=== PATIENT | male | born 1995 | race Caucasian/White ===

== ENCOUNTER → 2016-12-21 | Day surgery (SDC) | payer OTHER ==
[~2016-12-21] VITALS: Ht 177.8 cm; Wt 90.7 kg
[~2016-12-21] MED LIST: BUPIVACAINE HCL 0.5% 30 ML VIAL As Ordered ONE; HYCE0.1S PO; HYDROmorphone HCL 1 MG/ML SYRINGE (J1170) IV PRN; IBUP800T23 PO; IBUPROFEN 800 MG TAB PO PRN; KEFL500C7 PO; LIDOCAINE 2% INJ 100 MG/5 ML SDV (FOR ANES.) As Ordered ONE; LR 1,000 ML IV SCH; MIDAZOLAM INJ 2 MG/2 ML VIAL (J2250) As Ordered ONE; ONDANSETRON 4MG/2ML VIAL (J2405) As Ordered ONE; ONDANSETRON 4MG/2ML VIAL (J2405) IV PRN; OXYC1TAB23 PO; PERCOCET 5MG/325MG TAB PO PRN; PROPOFOL 200 MG/20 ML VIAL As Ordered ONE; SUCCINYLCHOLINE 100 MG/5 ML SYRINGE (J0330) As Ordered ONE; dexameTHASONE 4 MG/ML 1ML VIAL (J1100) As Ordered ONE; fentaNYL 100 MCG/2 ML INJECTION (J3010) As Ordered ONE; fentaNYL 100 MCG/2 ML INJECTION (J3010) IV PRN; no medications
[2016-12-21 13:05] VITALS: BP 176/105
--- NOTE | 2016-12-22 08:51 | RO ---
DATE OF PROCEDURE: 12/21/2016 PREOPERATIVE DIAGNOSIS: Chronic tonsillitis. POSTOPERATIVE DIAGNOSIS: Chronic tonsillitis. PROCEDURE: Tonsillectomy. SURGEON: Dr. Roger Jay COMPLETION SUPERVISOR: ANESTHESIA: INDICATION: 21-year-old with a history of chronic tonsil inflammation and tonsil stone production. PROCEDURE: Satisfactory general endotracheal anesthesia was administered. The patient placed in Trendelenburg position. A Miranda-Macho gag inserted. First, the right tonsil was grasped with an Allis clamp and retracted out of its muscular fossa. Using a cutting cautery, incision was made on the anterior pillar 3 mm from its edge and the capsule of the tonsil was then identified. Using a combination of cautery and blunt dissection, the tonsil was dissected medially out of its muscular fossa working superiorly down into the space between the constrictor muscle and the tonsil capsule. The tonsil was rolled medially out of its fossa working inferiorly and preserving the posterior pillar in its entirety. Once the tonsil was suspended only at the inferior pole, coagulation current was used to amputate tissue. No significant bleeding was encountered in this dissection. The left tonsil was removed in a similar fashion. After completing surgery, 0.50% Marcaine was injected into the surgical site. The gag was released at 3 minutes. Reinspection showed no active bleeding. The pharynx was irrigated with saline solution. The patient was then awakened, extubated and sent to recovery in satisfactory condition. He will be discharged home on a selection of pain medicine including Percocet, Motrin 800 mg and adult Tylenol. He will be seen back in the office in 1 week.
== END | disposition home or self-care (01) ==
LOC: M SDC 09:40
PROVIDERS: ATTEND Specialist
DX: J35.01 Chronic tonsillitis (principal)
CPT/HCPCS: 42826; 88302; J0330; J1100; J2250; J2405; J3010